=== PATIENT | female | born 1955 | race Caucasian/White ===

== ENCOUNTER 2017-03-02 09:34 | Emergency (ER) | payer MEDICARE, OTHER ==
[~2017-03-02] VITALS: Ht 177.8 cm; Wt 104.3 kg
[~2017-03-02 09:34] MED LIST: ACET-6134 PO; ALBU0.099 IH; ASPI81EC98 PO; FLUT1DSK4 IH; GABA100C PO; HYDR-2966 PO; IBUP-974 PO; ISOS5TAB7 PO; RANI-287 PO; SIMV10TA6 PO; TIOT18CA2 IH; [UNRECOGNIZED DRUG - OTHER]
[2017-03-02 10:10] VITALS: BP 134/83
--- NOTE | 2017-03-02 10:16 | NUR ---
Patient ambulated to bed 8 with family. RN evaluating patient at bedside.
--- NOTE | 2017-03-02 10:17 | NUR ---
62/F BIB SELF C/O RIGHT shoulder PAIN RADIATES TO to RIGHT ARM X 2WKS. hx:arthritis,chf,copd,asthma,htn,partial hysterectomy. DENIES N/V/D; SKIN IS PINK/WARM/DRY; AAOX4 WITH EVEN AND UNSTEADY GAIT; LUNGS CLEAR BL; HR EVEN AND REGULAR; PT DENIES ANY FEVER, CP, SOB, OR COUGH AT THIS TIME; PATIENT STATES PAIN OF 7/10 AT THIS TIME; VSS; PATIENT POSITIONED FOR COMFORT; HOB ELEVATED; BEDRAILS UP X2; BED DOWN. ER MD MADE AWARE OF PT STATUS.
[2017-03-02] MEDS ORDERED: METO25TE2 PO (10:27)
[2017-03-02] MEDS ORDERED: DIT5 PO (10:27)
[2017-03-02] MEDS ORDERED: TRAM50TA94 PO (10:28)
--- NOTE | 2017-03-02 10:31 | NUR ---
Patient being evaluated by DR PEDRO at bedside.
[2017-03-02] MEDS ORDERED: KETOROLAC 30 MG/ML VIAL IM ONE (10:35)
[2017-03-02] MEDS ORDERED: CYCLOBENZAPRINE 10 MG TAB PO ONE (10:35)
--- NOTE | 2017-03-02 10:35 | NUR ---
Patient appears to be resting comfortably in bed. Vital Signs within normal limits. Respirations even and unlabored.1ILL CONTINUE TO MONITOR.
--- NOTE | 2017-03-02 10:45 | NUR ---
ADMINISTERED TORADOL 30 MG IM .PT TOLERATED PROCEDURE WELL.
--- NOTE | 2017-03-02 11:34 | NUR ---
Dr. Rosario re-evaluating patient at bedside.
[2017-03-02 11:35] VITALS: BP 134/83
--- NOTE | 2017-03-02 11:38 | NUR ---
Patient discharged with v/s stable. Written and verbal after care instructions given and explained. Patient alert, oriented and verbalized understanding of instructions. Ambulatory with unsteady gait. All questions addressed prior to discharge. ID band removed. Patient advised to follow up with PMD. Rx of FLEXARIL given. Patient educated on indication of medication including possible reaction and side effects. Opportunity to ask questions provided and answered.
== END 2017-03-02 11:38 | disposition home or self-care (01) ==
LOC: MED 09:34
DX: S16.1XXA Strain of muscle, fascia and tendon at neck level, initial encounter (principal); K59.00 Constipation, unspecified; M79.621 Pain in right upper arm; I50.9 Heart failure, unspecified; J44.9 Chronic obstructive pulmonary disease, unspecified; I10 Essential (primary) hypertension; Z90.710 Acquired absence of both cervix and uterus
CPT/HCPCS: 81002; 96372; 99283; J1885

== ENCOUNTER 2018-12-12 15:12 | Emergency (ER) | payer MEDICARE, OTHER ==
[~2018-12-12] VITALS: Ht 177.8 cm; Wt 104.3 kg
[~2018-12-12 15:12] MED LIST changes: -ACET-6134 PO; +DIT5 PO; -FLUT1DSK4 IH; -GABA100C PO; -HYDR-2966 PO; -IBUP-974 PO; +METO25TE2 PO; -TIOT18CA2 IH; +TRAM50TA1 PO; -[UNRECOGNIZED DRUG - OTHER]
[2018-12-12 15:25] VITALS: BP 127/67
--- NOTE | 2018-12-12 15:25 | NUR ---
TO BED # 07 AMBULATORY
--- NOTE | 2018-12-12 15:42 | NUR ---
PT BIB SELF WITH C/O RT SHOULDER PAIN SINCE THREE HOURS AGO . PT STATES TO HAVE DISLOCATRED HER RT SHOULDER WHILE CLEANING HER BED, HEARD PUFF SOUND WHILE MIOVING SHOULDER, NO ROM AT RT SHOULDER THIS TIME. PAIN 10/. CAP REFILL NORMAL, VEMENT PRESENT IN FINGER.
--- NOTE | 2018-12-12 15:47 | NUR ---
clinical technician at bedside.
--- NOTE | 2018-12-12 15:50 | NUR ---
X-RAY TA THE BEDSIDE.
[2018-12-12] MEDS ORDERED: KETOROLAC 60 MG/2 ML VIAL IM ONE (16:35)
--- NOTE | 2018-12-12 16:49 | NUR ---
Patient being evaluated by physician at bedside.
[2018-12-12] MEDS ORDERED: MORPHINE SULFATE 4 MG/ML SYR IM ONE (17:20)
[2018-12-12 17:40] VITALS: BP 124/59
--- NOTE | 2018-12-12 17:43 | NUR ---
APPLIED SLING TO RIGHT SHOULDER WITHOUT ANY ISSUES
== END 2018-12-12 17:40 | disposition home or self-care (01) ==
LOC: MED 15:12
DX: M25.511 Pain in right shoulder (principal); J45.909 Unspecified asthma, uncomplicated; I50.9 Heart failure, unspecified; I11.0 Hypertensive heart disease with heart failure; J44.9 Chronic obstructive pulmonary disease, unspecified; Z90.710 Acquired absence of both cervix and uterus; F17.200 Nicotine dependence, unspecified, uncomplicated; Z98.890 Other specified postprocedural states; Z79.82 Long term (current) use of aspirin; Z79.899 Other long term (current) drug therapy
CPT/HCPCS: 73030; 96372; 99283; J1885; J2270